=== PATIENT | male | born 1975 | race Caucasian/White ===

== ENCOUNTER → 2018-06-25 | Outpatient (CLI) | payer OTHER ==
[2018-06-25 11:15] LABS: Basophils # (A) 0.1 k/uL (0-0.2); Basophils % (A) 1 %; Eosinophils # (A) 0.1 k/uL (0-0.7); Eosinophils % (A) 1 %; HCT 49.3 % (39.0-53.0); HGB 16.2 gm/dL (13.0-17.5); Lymphocytes # (A) 1.9 k/uL (1.0-4.8); Lymphocytes % (A) 25 %; MCH 30.8 pg (25.0-35.0); MCHC 32.8 g/dL (31.0-37.0); MCV 93.9 fL (80.0-100.0); Mean Platelet Volume 7.2; Monocytes # (A) 0.4 k/uL (0-1.0); Monocytes % (A) 5 %; Neutrophils % (A) 66 %; Platelet Count 303 k/uL (150-450); RBC 5.26 m/uL (4.30-5.90); RDW 13.1 % (11.5-15.5); WBC 7.6 k/uL (3.8-10.6)
== END | disposition home or self-care (01) ==
LOC: LABPAT 10:04
PROVIDERS: ATTEND Surgery
DX: Z01.812 Encounter for preprocedural laboratory examination (principal); K43.9 Ventral hernia without obstruction or gangrene
CPT/HCPCS: 36415; 85025

== ENCOUNTER 2024-03-13 16:17 | Emergency (ER) | payer OTHER ==
[2024-03-13 16:26] VITALS: RESP 18
--- NOTE | 2024-03-13 16:55 | ED ---
Skin/Abscess/FB HPI - General Chief complaint: Skin/Abscess/Foreign Body Stated complaint: chest pain Time Seen by Provider: 03/13/24 16:52 Source: patient, RN notes reviewed Mode of arrival: ambulatory Limitations: no limitations - History of Present Illness Initial comments: 48-year-old male presenting with cysts on chest x 3 years. States they have been growing in size and the largest cyst has become very painful. He has never been seen for this and he has never had them drained before. States he has a very physical job, and states this is is very painful with the physical labor. Denies fevers, chills, drainage, redness, or warmth. Denies any other medical conditions. - Related Data Home Medications Medication Instructions Recorded Confirmed Gabapentin [Neurontin] 300 mg PO TID 06/22/18 06/27/18 Acetaminophen [Tylenol] 500 mg PO Q4-6H PRN 06/27/18 06/27/18 Previous Rx's Medication Instructions Recorded Docusate [Colace] 100 mg PO BID #20 capsule 06/27/18 HYDROcodone/APAP 7.5-325MG [[place] 1 tab PO Q4H PRN 3 Days #18 tab 06/27/18 7.5-325] Allergies Allergy/AdvReac Type Severity Reaction Status Date / Time No Known Allergies Allergy Verified 03/13/24 16:26 Review of Systems ROS Statement: Those systems with pertinent positive or pertinent negative responses have been documented in the HPI. ROS Other: All systems not noted in ROS Statement are negative. Past Medical History Additional Past Medical History / Comment(s): VENTRAL HERNIA History of Any Multi-Drug Resistant Organisms: None Reported Past Surgical History: No Surgical Hx Reported Additional Past Surgical History / Comment(s): NO PRIOR SX HX Past Anesthesia/Blood Transfusion Reactions: No Reported Reaction Additional Past Anesthesia/Blood Transfusion Reaction / Comment(s): NO PRIOR SX HX Past Psychological History: Anxiety Smoking Status: Current every day smoker Past Alcohol Use History: Occasional Past Drug Use History: Marijuana - Past Family History Mother Family Medical History: No Reported History General Exam Limitations: no limitations General appearance: alert, in no apparent distress Head exam: Present: atraumatic, normocephalic, normal inspection Back exam: Present: normal inspection Neurological exam: Present: alert, oriented X3 Psychiatric exam: Present: normal affect, normal mood Skin exam: Present: warm, dry, intact, normal color, other (3 fluctuant masses present on anterior chest wall. 1 cyst on left side of chest wall is fluctuant, tennis ball sized, tender and nonerythematous with no warmth or drainage. There are 2 cysts on right side of chest with same qualities.) Course Vital Signs 03/13/24 16:22 Temperature 98.3 F Pulse Rate 94 Respiratory 18 Rate Blood Pressure 127/85 O2 Sat by Pulse 97 Oximetry Medical Decision Making - Medical Decision Making Was pt. sent in by a medical professional or institution (, PA, [facility], urgent care, hospital, or senior care...) When possible be specific @ -No Did you speak to anyone other than the patient for history (EMS, parent, family, police, friend...)? What history was obtained from this source @ -No Did you review nursing and triage notes (agree or disagree)? Why? @ -I reviewed and agree with nursing and triage notes Were old charts reviewed (outside hosp., previous admission, EMS record, old EKG, old radiological studies, urgent care reports/EKG's, senior care records)? Report findings @ -No old charts were reviewed Differential Diagnosis (chest pain, altered mental status, abdominal pain women, abdominal pain men, vaginal bleeding, weakness, fever, dyspnea, syncope, headache, dizziness, GI bleed, back pain, seizure, CVA, palpatations, mental health, musculoskeletal)? @ -Differential Musculoskeletal Muscular strain, contusion, ligament sprain, fracture, arthritis, septic arthritis, bursitis, cellulitis, muscle spasm, nerve compression, DVT, arterial occlusion, herpes zoster, electrolyte abnormality, tumor.... This is not meant to be in all inclusive list EKG interpreted by me (3pts min.). @ -None X-rays interpreted by me (1pt min.). @ -None done CT interpreted by me (1pt min.). @ -None done U/S interpreted by me (1pt. min.). @ -Ultrasound revealed nonspecific heterogeneous lesions seen within bilateral chest and right nipple, possible complex cystic structures, abscesses versus neoplastic lesion What testing was considered but not performed or refused? (CT, X-rays, U/S, labs)? Why? @ -Lab work not performed due to no sign of infection What meds were considered but not given or refused? Why? @ -None Did you discuss the management of the patient with other professionals (professionals i.e. Dr., PA, [facility], lab, RT, psych nurse, protective services social worker, beer runner, teacher, detention officer, telephonic nurse case manager)? Give summary @ -No Was smoking cessation discussed for >3mins.? @ -No Was critical care preformed (if so, how long)? @ -No Were there social determinants of health that impacted care today? How? (Homelessness, low income, unemployed, alcoholism, drug addiction, transportation, low edu. Level, literacy, decrease access to med. care, senior care, rehab)? @ -No Was there de-escalation of care discussed even if they declined (Discuss DNR or withdrawal of care, Hospice)? DNR status @ -No What co-morbidities impacted this encounter? (DM, HTN, Smoking, COPD, CAD, Cancer, CVA, ARF, Chemo, Hep., AIDS, mental health diagnosis, sleep apnea, morbid obesity)? @ -None Was patient admitted / discharged? Hospital course, mention meds given and route, prescriptions, significant lab abnormalities, going to OR and other pertinent info. @ -Patient was discharged. Patient was seen and evaluated for cysts on chest x 3 years. Vital signs are within normal limits, patient is in no acute distress. No sign of bacterial infection. Ultrasound reveals nonspecific heterogeneous lesions are seen within the bilateral chest and right nipple. Discussed findings with patient. I would like patient to follow-up with dermatology at this time as cysts are chronic in nature and likely need biopsy and removal. Patient is agreeable to plan. Case was discussed by ED attending Dr. Magaña. Patient discharged in stable condition. Undiagnosed new problem with uncertain prognosis? @ -No Drug Therapy requiring intensive monitoring for toxicity (Heparin, Nitro, Insulin, Cardizem)? @ -No Were any procedures done? @ -No Diagnosis/symptom? @ -Multiple cysts on chest Acute, or Chronic, or Acute on Chronic? @ -Acute Uncomplicated (without systemic symptoms) or Complicated (systemic symptoms)? @ -Uncomplicated Side effects of treatment? @ -No Exacerbation, Progression, or Severe Exacerbation? @ -No Poses a threat to life or bodily function? How? (Chest pain, [place], [place], pneumonia, PE, COPD, DKA, ARF, appy, cholecystitis, CVA, Diverticulitis, Homicidal, Suicidal, threat to staff... and all critical care pts) @ -No Disposition Clinical Impression: Cyst Disposition: HOME SELF-CARE Condition: Stable Additional Instructions: Please follow-up with dermatology as discussed. Please return to the Emergency Department if symptoms worsen or any other concerns. Is patient prescribed a controlled substance at d/c from ED?: No Referrals: [facility] [NON-STAFF] - 1-2 days None,Stated [Primary Care Provider] - 1-2 days Chance Becerril MD [STAFF PHYSICIAN] - 1-2 days Time of Disposition: 19:20
--- NOTE | 2024-03-13 18:16 | US ---
EXAMINATION TYPE: US mass soft tissue chest/back DATE OF EXAM: 03/13/2024 COMPARISON: NONE CLINICAL INDICATION: Male, 48 years old with history of cyst on chest; Patient states 3 lumps on ches t that have been there for 3 years. States that they have grown. 2 chest lumps have redness to them. 1 of the lumps is on the right nipple TECHNIQUE: Scanned patients AOC (Left Chest, Right chest, Right nipple) FINDINGS: Left chest: There is a 6.0 x 2.7 x 5.7 cm slightly hypoechoic area seen. Right Chest: There is a 6.3 x 2.4 x 5.8cm hypoechoic, heterogeneous area seen. Right Nipple: There is a 4.7 x 1.9 x 4.5cm slightly hypoechoic area seen. There is small foci of color Doppler flow suggested within the left chest lesion. There are no discre te tracts to the superficial skin surface in these lesions. IMPRESSION: Nonspecific heterogenous lesions are seen within the bilateral chest and right nipple. Given the nons pecific findings and reported history, findings could represent complex cystic structures, abscesses versus neoplastic lesion. Compare with any known history or prior imaging otherwise recommend tissue sampling for more definitive diagnosis.
[2024-03-13 19:26] VITALS: BP 123/81; PULSE 91; TEMP 98.2
== END 2024-03-13 19:26 | disposition home or self-care (01) ==
LOC: EC 16:17
DX: N63.10 Unspecified lump in the right breast, unspecified quadrant (principal); F17.200 Nicotine dependence, unspecified, uncomplicated
CPT/HCPCS: 99285

== ENCOUNTER 2024-10-19 18:02 | Emergency (ER) | payer OTHER ==
[2024-10-19 18:30] VITALS: RESP 18; TEMP 98.8
--- NOTE | 2024-10-19 19:10 | ED ---
Fall HPI - General Chief Complaint: Fall Stated Complaint: Fall-Head injury Time Seen by Provider: 10/19/24 18:03 Source: patient, EMS Mode of arrival: EMS - History of Present Illness Initial Comments: This patient is a 49-year-old man brought to have evaluation after he had a fall. The patient states that he had been drinking today. He usually drinks but he states he a little more than his usual for him. Patient was walking near the road and fell. Patient was noted to fall by bystanders who called EMS. The patient had gotten back up and had walked approximately quarter to half mile from where he was seen falling when EMS found him. As he was slurring his speech and unstable they brought him to have evaluation. The patient is complaining of pain to the left hand, right ankle, the posterior scalp and neck. The patient is not certain whether he had brief loss of consciousness or not. He is now alert. 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 Witnessed: yes, by bystander Place Fall Occurred: street Loss of Consciousness: unsure Prolonged Down Time?: no Symptoms Prior to Fall: none Location: face Location - Extremities: Left: Hand, Right: Ankle Severity: moderate Context: tripped/slipped, alcohol use Associated Symptoms: headache - Related Data Home Medications Medication Instructions Recorded Confirmed Gabapentin [Neurontin] 300 mg PO TID 06/22/18 06/27/18 Acetaminophen [Tylenol] 500 mg PO Q4-6H PRN 06/27/18 06/27/18 Previous Rx's Medication Instructions Recorded Docusate [Colace] 100 mg PO BID #20 capsule 06/27/18 HYDROcodone/APAP 7.5-325MG [[place] 1 tab PO Q4H PRN 3 Days #18 tab 06/27/18 7.5-325] Allergies Allergy/AdvReac Type Severity Reaction Status Date / Time No Known Allergies Allergy Verified 10/19/24 18:30 Review of Systems ROS Statement: Those systems with pertinent positive or pertinent negative responses have been documented in the HPI. ROS Other: All systems not noted in ROS Statement are negative. Constitutional: Denies: fever, chills, weakness Eyes: Denies: eye pain, vision change Respiratory: Denies: cough, dyspnea Cardiovascular: Denies: chest pain, palpitations, edema Gastrointestinal: Denies: abdominal pain, vomiting, diarrhea Genitourinary: Denies: dysuria Musculoskeletal: Reports: as per HPI, arthralgia. Denies: back pain Skin: Denies: rash Neurological: Reports: headache. Denies: weakness, numbness, confusion Hematological/Lymphatic: Denies: easy bleeding Past Medical History Additional Past Medical History / Comment(s): VENTRAL HERNIA History of Any Multi-Drug Resistant Organisms: None Reported Past Surgical History: No Surgical Hx Reported Additional Past Surgical History / Comment(s): NO PRIOR SX HX Past Anesthesia/Blood Transfusion Reactions: No Reported Reaction Additional Past Anesthesia/Blood Transfusion Reaction / Comment(s): NO PRIOR SX HX Past Psychological History: Anxiety Smoking Status: Current every day smoker Past Alcohol Use History: Occasional Past Drug Use History: Marijuana - Past Family History Mother Family Medical History: No Reported History General Exam Limitations: no limitations General appearance: alert, in no apparent distress, appears intoxicated Head exam: Present: normocephalic, other (There is contusion and some tenderness left occipital, no obvious deformity) Eye exam: Present: normal appearance, PERRL, EOMI, nystagmus. Absent: scleral icterus, conjunctival injection ENT exam: Present: mucous membranes dry Neck exam: Present: normal inspection, tenderness. Absent: meningismus Respiratory exam: Present: normal lung sounds bilaterally. Absent: respiratory distress, wheezes, rales, rhonchi, stridor, chest wall tenderness, accessory muscle use Cardiovascular Exam: Present: regular rate, normal rhythm, normal heart sounds. Absent: systolic murmur, diastolic murmur, rubs, gallop GI/Abdominal exam: Present: soft. Absent: distended, tenderness, guarding, rebound, rigid, mass Extremities exam: Present: normal inspection, tenderness, normal capillary refill. Absent: full ROM, pedal edema, calf tenderness Back exam: Present: normal inspection. Absent: CVA tenderness (R), CVA tenderness (L), vertebral tenderness Neurological exam: Present: alert, oriented X3, CN II-XII intact. Absent: motor sensory deficit Skin exam: Present: warm, dry, intact, normal color. Absent: rash Course Vital Signs 10/19/24 10/19/24 18:24 19:52 Temperature 98.8 F Pulse Rate 89 120 H Respiratory 18 18 Rate Blood Pressure 141/99 127/99 O2 Sat by Pulse 97 97 Oximetry Medical Decision Making - Medical Decision Making The patient had x-ray of the left hand that I interpreted as negative for acute bony injury, dislocation, foreign body. The patient had x-ray of the right ankle, that I interpreted as negative for acute bony injury, dislocation, foreign body. The patient had CT scan of the brain and C-spine that I interpreted as negative for acute bony injury, acute intracranial hemorrhage, mass or midline shift. Was pt. sent in by a medical professional or institution (, [facility], HARMONIC ANALYST, urgent care, hospital, or shelter...) When possible be specific @ -[No] Did you speak to anyone other than the patient for history (EMS, parent, family, police, friend...)? What history was obtained from this source @ -[No] Did you review nursing and triage notes (agree or disagree)? Why? @ -[I reviewed and agree with nursing and triage notes] Were old charts reviewed (outside hosp., previous admission, EMS record, old EKG, old radiological studies, urgent care reports/EKG's, shelter records)? Report findings @ -[No old charts were reviewed] Differential Diagnosis (chest pain, altered mental status, abdominal pain women, abdominal pain men, vaginal bleeding, weakness, fever, dyspnea, syncope, h eadache, dizziness, GI bleed, back pain, seizure, CVA, palpatations, mental health, musculoskeletal)? @ -[not applicable] EKG interpreted by me (3pts min.). @ -[As above] X-rays interpreted by me (1pt min.). @ -[I interpreted as above CT interpreted by me (1pt min.). @ -[I interpreted as above U/S interpreted by me (1pt. min.). @ -[None done] What testing was considered but not performed or refused? (CT, X-rays, U/S, labs)? Why? @ -[None] What meds were considered but not given or refused? Why? @ -[None] Did you discuss the management of the patient with other professionals (professionals i.e. GENESIS Duncan, HARMONIC ANALYST, lab, RT, psych nurse, social work associate, pressure washer, teacher, morale officer, leather case finisher)? Give summary @ -[No] Was smoking cessation discussed for >3mins.? @ -[No] Was critical care preformed (if so, how long)? @ -[No] Were there social determinants of health that impacted care today? How? (Homelessness, low income, unemployed, alcoholism, drug addiction, transportation, low edu. Level, literacy, decrease access to med. care, prison, rehab)? @ -[No] Was there de-escalation of care discussed even if they declined (Discuss DNR or withdrawal of care, Hospice)? DNR status @ -[No] What co-morbidities impacted this encounter? (DM, HTN, Smoking, COPD, CAD, Cancer, CVA, ARF, Chemo, Hep., AIDS, mental health diagnosis, sleep apnea, morbid obesity)? @ -[None] Was patient admitted / discharged? Hospital course, mention meds given and route, prescriptions, significant lab abnormalities, going to OR and other pertinent info. @ -[Patient is 49-year-old man here to have evaluation after fall. Patient is observed until able to ambulate steadily. Undiagnosed new problem with uncertain prognosis? @ -[No] Drug Therapy requiring intensive monitoring for toxicity (Heparin, Nitro, Insulin, Cardizem)? @ -[No] Were any procedures done? @ -[No] Diagnosis/symptom? @ -[Acute fall Acute alcohol intoxication Contusion, scalp Abrasion, hand Acute, or Chronic, or Acute on Chronic? @ -[Acute Uncomplicated (without systemic symptoms) or Complicated (systemic symptoms)? @ -[Uncomplicated Side effects of treatment? @ -[No] Exacerbation, Progression, or Severe Exacerbation? @ -[No] Poses a threat to life or bodily function? How? (Chest pain, [place], [place], pneumonia, PE, COPD, DKA, ARF, appy, cholecystitis, CVA, Diverticulitis, Homicidal, Suicidal, threat to staff... and all critical care pts) @ -[No] All treatments are based on ideal body weight as in ED triage Disposition Clinical Impression: Fall, Contusion, Abrasion Disposition: HOME SELF-CARE Condition: Good Instructions (If sedation given, give patient instructions): Head Injury (ED), Fall Prevention (ED) Is patient prescribed a controlled substance at d/c from ED?: No Referrals: Adriana Campbell DO [Primary Care Provider] - 1-2 days
--- NOTE | 2024-10-19 19:18 | XR ---
EXAMINATION TYPE: XR ankle complete RT DATE OF EXAM: 10/19/2024 7:06 PM COMPARISON: None. CLINICAL INDICATION: Male, 49 years old with history of fall injury; [facility], pain TECHNIQUE: XR ankle complete RT; ankle is imaged in frontal, lateral and oblique projections. FINDINGS: There is no evidence of acute osseous pathology. No evidence of subluxation or dislocation. Kager's fat pad is intact. No radiopaque foreign bodies are identified. IMPRESSION: 1. No evidence of acute fracture. 2. Subcutaneous swelling around the ankle likely secondary to underlying soft tissue injury. [facility], , 10/19/2024 7:16 PM
--- NOTE | 2024-10-19 19:19 | XR ---
EXAMINATION TYPE: XR hand complete LT DATE OF EXAM: 10/19/2024 7:06 PM COMPARISON: None. CLINICAL INDICATION: Male, 49 years old with history of fall injury; PH[facility], pain TECHNIQUE: XR hand complete LT Frontal, lateral and oblique views were obtained. FINDINGS: Normal alignment of the visualized joints. No acute osseous pathology is identified. No e vidence of soft tissue swelling. IMPRESSION: No acute osseous pathology. [facility], , 10/19/2024 7:17 PM
--- NOTE | 2024-10-19 19:24 | CT ---
EXAMINATION TYPE: CT brain cspine wo con DATE OF EXAM: 10/19/2024 7:03 PM COMPARISON: None. CLINICAL INDICATION: Male, 49 years old with history of fall injury; Pain after fall. ETOH TECHNIQUE: Brain: Multiple axial CT images of the brain were obtained without IV contrast. Cspine: Axial CT images from the skull base to the inferior aspect of T2 we obtained without intraven ous contrast. Coronal and sagittal reformatted images were also reviewed. . CT DLP: 1430.9 mGycm, Automated exposure control for dose reduction was used. FINDINGS: Brain: Extra-axial spaces: No abnormal extra-axial fluid collections. Ventricular system: Within normal limits Cerebral parenchyma: No acute intraparenchymal hemorrhage or mass effect. The dos santos-white junction is well differentiated. Scattered hypoattenuating areas are seen within the white matter. Cerebellum: Unremarkable. Mass effect: No evidence of midline shift. Intracranial vasculature: unremarkable Soft tissues: Left posterior scalp hematoma. Calvarium/osseous structures: No depressed skull fracture. Paranasal sinuses and mastoid air cells: Complete opacification of the left maxillary sinus with air- fluid level. Visualized orbits: Orbital contents are intact. Cervical spine: Fracture: None. Osseous structures: Unremarkable Vertebral alignment: Within normal limits. Spinal canal/Neural Foramina: No evidence of significant spinal canal narrowing. No evidence for sign ificant neural foraminal stenosis. Neck soft tissues: Prevertebral soft tissues are within normal limits. Other: Emphysema. IMPRESSION: 1. Left posterior scalp hematoma without evidence of an acute intracranial process. 2. No evidence of cervical spine fracture. [facility], , 10/19/2024 7:22 PM
[2024-10-19 19:55] VITALS: BP 127/99; PULSE 120
== END 2024-10-19 19:57 | disposition home or self-care (01) ==
LOC: EC 18:02
DX: S00.03XA Contusion of scalp, initial encounter (principal); S60.512A Abrasion of left hand, initial encounter; F17.200 Nicotine dependence, unspecified, uncomplicated; W18.30XA Fall on same level, unspecified, initial encounter
CPT/HCPCS: 70450; 72125; 99284